=== PATIENT | male | born 1950 | race Caucasian/White ===

== ENCOUNTER 2017-11-11 17:48 | Emergency (ER) | payer MEDICARE, BC ==
[2017-11-11] MEDS ORDERED: Sodium Chloride 0.9% 2.5 ML Syringe FLUSH PRN (18:35)
[2017-11-11] MEDS ORDERED: Sodium Chloride 0.9% 10 ML Syringe FLUSH PRN (18:35)
--- NOTE | 2017-11-11 18:35 | EDM.PDOC ---
<Adam Lorenzo - Last Filed: 11/11/17 22:04> ED HPI GENERAL MEDICAL PROBLEM - General Chief Complaint: Genitourinary Problem Stated Complaint: BOWEL ISSUES Time Seen by Provider: 11/11/17 18:34 Source of Information: Reports: Patient, Family History Limitations: Reports: No Limitations - History of Present Illness INITIAL COMMENTS - FREE TEXT/NARRATIVE: HISTORY AND PHYSICAL: History of present illness: Patient is a 67-year-old male here with complaint of constipation. He states he has not been able to have a bowel movement in at least 2 days. He states that today he took ex-lax and used a suppository and is now having watery diarrhea. He also notes that he has not been able to urinate since this morning. He states he feels like he has to go but is unable to. He states he has some pain around his rectum but denies any abdominal pain. He denies any dysuria, hematuria, melena, hematochezia, nausea, vomiting, abdominal pain, recent travel , recent antibiotic use, chest pain, SOB. He has a history of benign prostatic hyperplasia and constipation secondary to Parkinsons disease. Review of systems: As per history of present illness and below otherwise all systems reviewed and negative. Past medical history: As per history of present illness and as reviewed below otherwise noncontributory. Surgical history: As per history of present illness and as reviewed below otherwise noncontributory. Social history: No reported history of drug or alcohol abuse. Family history: As per history of present illness and as reviewed below otherwise noncontributory. Physical exam: General: Patient sitting comfortably in no acute distress and nontoxic appearing HEENT: Atraumatic, normocephalic, pupils reactive, negative for conjunctival pallor or scleral icterus, mucous membranes moist, throat clear, neck supple, nontender, trachea midline. No meningeal signs. Lungs: Clear to auscultation, breath sounds equal bilaterally, chest nontender. Heart: S1S2, regular, negative for clicks, rubs, or overt murmur. Abdomen: Bowel sounds hyperactive. Soft, nondistended, nontender. Negative for masses or hepatosplenomegaly. Negative for costovertebral tenderness. Pelvis: Stable nontender. Genitourinary: Deferred. Rectal: Large amount of hard stool felt in the rectal vault. Extremities: Atraumatic, negative for cords or calf pain. Neurovascular unremarkable. Neuro: Awake, alert, oriented. Cranial nerves II through XII unremarkable. Cerebellum unremarkable. Motor and sensory unremarkable throughout. Exam nonfocal. Notes: Elevated WBC count likely due to stress reaction. Patient afebrile, CT and CXR negative, UA unremarkable. Diagnostics: CBC, CMP, lipase, bladder scan, UA, UC, CT abdomen/pelvis, CXR Therapeutics: 500mL NS IV A-bomb enema Prescriptions: None Impression: Stool impaction Urinary retention Constipation Plan: 1. Drink plenty of fluids and use miralax as instructed 2. Follow up with primary care provider 3. Return to ED as needed as discussed Definitive disposition and diagnosis as appropriate pending reevaluation and review of above. Generalized Pain Score (Numeric/FACES): 2 - Related Data Allergies Allergy/AdvReac Type Severity Reaction Status Date / Time Dye from leather certain Allergy Rash Uncoded 11/11/17 18:03 clothes Perfumes Allergy Rash Uncoded 11/11/17 18:03 Home Meds: Home Meds Carbidopa/Levodopa [Carbidopa-Levodopa 25-100 Tab] 2 tab PO QID 11/11/17 [ History] Entacapone 200 mg PO ASDIRECTED 11/11/17 [History] Finasteride 5 mg PO DAILY 11/11/17 [History] Tamsulosin [Flomax] 0.4 mg PO DAILY 11/11/17 [History] Past Medical History HEENT History: Reports: Impaired Vision Other HEENT History: wears glasses Cardiovascular History: Reports: None Respiratory History: Reports: None Other Respiratory History: collapsed lung? Gastrointestinal History: Reports: Chronic Constipation Genitourinary History: Reports: Renal Calculus Other Genitourinary History: "History of stones, currently watching Prostate numbers" Other Musculoskeletal History: Hx: Fractured Right Thumb, Some back pain and joint stiffness ('age') Neurological History: Reports: Parkinson's Other Neuro History: "Tremors to Right, starting on Left, medication from Dr. Jenaro Rich, says to treat 'could go into parkinson's" Psychiatric History: Reports: Anxiety Other Psychiatric History: History of alcohol abuse, sober for 'many' years, some anxiety with new things/situations Endocrine/Metabolic History: Reports: None Dermatologic History: Reports: None Other Dermatologic History: Only when I break out from 'dyes, especially from leather and certain clothing" - Infectious Disease History Infectious Disease History: Reports: Chicken Pox, Measles, Shingles - Past Surgical History HEENT Surgical History: Reports: Adenoidectomy, Tonsillectomy Male Surgical History: Reports: Kidney Stone Extraction Neurological Surgical History: Reports: None Musculoskeletal Surgical History: Reports: Other (See Below), Shoulder Surgery Social & Family History - Tobacco Use Smoking Status *Q: Current Every Day Smoker Years of Tobacco use: 20 Packs/Tins Daily: 1 - Caffeine Use Caffeine Use: Reports: None - Recreational Drug Use Recreational Drug Use: No ED ROS GENERAL - Review of Systems Review Of Systems: ROS reveals no pertinent complaints other than HPI. ED EXAM, GI/ABD - Physical Exam Exam: See Below (see dictation) Course - Vital Signs Last Recorded V/S: Last Vital Signs Temp 97.5 F 11/11/17 20:40 Pulse 86 11/11/17 20:40 Resp 16 11/11/17 20:40 BP 138/67 11/11/17 20:40 Pulse Ox 96 11/11/17 20:40 - Orders/Labs/Meds Orders: Active Orders 24 hr Category Date Time Status Abdomen Pelvis w Cont [CT] Stat Exams 11/11/17 18:51 Taken Chest 1V Frontal [CR] Stat Exams 11/11/17 21:03 Taken CULTURE URINE [RM] Stat Lab 11/11/17 18:56 Received Sodium Chloride 0.9% [Normal Saline] 500 ml Med 11/11/17 18:45 Active IV STAT Sodium Chloride 0.9% [Saline Flush] Med 11/11/17 18:35 Active 10 ml FLUSH ASDIRECTED PRN Sodium Chloride 0.9% [Saline Flush] Med 11/11/17 18:35 Active 2.5 ml FLUSH ASDIRECTED PRN Saline Lock Insert [OM.PC] Stat Oth 11/11/17 18:35 Ordered Medication Orders Sodium Chloride (Normal Saline) 500 mls @ 999 mls/hr IV STAT MAURO Last Admin: 11/11/17 20:01 Dose: 999 mls/hr Sodium Chloride (Saline Flush) 10 ml FLUSH ASDIRECTED PRN PRN Reason: Keep Vein Open Sodium Chloride (Saline Flush) 2.5 ml FLUSH ASDIRECTED PRN PRN Reason: Keep Vein Open Labs: Laboratory Tests 11/11/17 11/11/17 11/11/17 Range/Units 18:48 18:48 18:56 WBC 17.03 H (4.0-11.0) K/uL RBC 4.98 (4.50-5.90) M/uL Hgb 15.6 (13.0-17.0) g/dL Hct 44.7 (38.0-50.0) % MCV 89.8 (80.0-98.0) fL MCH 31.3 (27.0-32.0) pg MCHC 34.9 (31.0-37.0) g/dL RDW Std Deviation 46.1 (28.0-62.0) fl RDW Coeff of Pau 14 (11.0-15.0) % Plt Count 227 (150-400) K/uL MPV 10.50 (7.40-12.00) fL Neut % (Auto) 85.8 H (48.0-80.0) % Lymph % (Auto) 8.9 L (16.0-40.0) % [place] % (Auto) 5.2 (0.0-15.0) % Eos % (Auto) 0.0 (0.0-7.0) % Baso % (Auto) 0.1 (0.0-1.5) % Neut # (Auto) 14.6 H (1.4-5.7) K/uL Lymph # (Auto) 1.5 (0.6-2.4) K/uL [place] # (Auto) 0.9 H (0.0-0.8) K/uL Eos # (Auto) 0.0 (0.0-0.7) K/uL Baso # (Auto) 0.0 (0.0-0.1) K/uL Nucleated RBC % 0.0 /100WBC Nucleated RBCs # 0 K/uL Sodium 139 (136-148) mmol/L Potassium 3.7 (3.5-5.1) mmol/L Chloride 104 (98-107) mmol/L Carbon Dioxide 24.2 (21.0-32.0) mmol/L BUN 13 (7.0-18.0) mg/dL Creatinine 1.0 (0.8-1.3) mg/dL Est Cr Clr Drug Dosing 65.57 mL/min Estimated GFR (MDRD) > 60.0 ml/min Glucose 115 H (74-106) mg/dL Calcium 9.2 (8.5-10.1) mg/dL Total Bilirubin 0.5 (0.2-1.0) mg/dL AST 21 (15-37) IU/L ALT 32 (14-63) IU/L Alkaline Phosphatase 92 (46-116) U/L Total Protein 7.2 (6.4-8.2) g/dL Albumin 4.1 (3.4-5.0) g/dL Globulin 3.1 (2.0-3.5) g/dL Albumin/Globulin Ratio 1.3 (1.3-2.8) Lipase 85 (73-393) U/L Urine Color YELLOW Urine Appearance CLEAR Urine pH 5.5 (5.0-8.0) Ur Specific [place] >= 1.030 (1.001-1.035) Urine Protein NEGATIVE (NEGATIVE) mg/dL Urine Glucose (UA) NEGATIVE (NEGATIVE) mg/dL Urine Ketones NEGATIVE (NEGATIVE) mg/dL Urine Occult Blood NEGATIVE (NEGATIVE) Urine Nitrite NEGATIVE (NEGATIVE) Urine Bilirubin NEGATIVE (NEGATIVE) Urine Urobilinogen 0.2 (<2.0) EU/dL Ur Leukocyte Esterase NEGATIVE (NEGATIVE) Urine RBC 0-1 (0-2/HPF) Urine WBC 0-1 (0-5/HPF) Ur Epithelial Cells RARE (NONE-FEW) Urine Bacteria RARE (NEGATIVE) Meds: Medications Generic Name Dose Route Start Last Admin Trade Name Freq PRN Reason Stop Dose Admin Sodium Chloride 500 mls @ 999 mls/hr 11/11/17 18:45 11/11/17 20:01 Normal Saline IV 999 mls/hr STAT MAURO Administration Sodium Chloride 10 ml 11/11/17 18:35 Saline Flush FLUSH ASDIRECTED PRN Keep Vein Open Sodium Chloride 2.5 ml 11/11/17 18:35 Saline Flush FLUSH ASDIRECTED PRN Keep Vein Open Discontinued Medications Generic Name Dose Route Start Last Admin Trade Name Freq PRN Reason Stop Dose Admin Bisacodyl 10 mg 11/11/17 20:49 11/11/17 22:12 Dulcolax RECTAL 11/11/17 20:50 Not Given ONETIME ONE Iopamidol 100 ml 11/11/17 21:24 11/11/17 21:25 Isovue-370 (76%) IVPUSH 11/11/17 21:25 100 ml ONETIME ONE Administration Departure - Departure Time of Disposition: 22:04 Disposition: Home, Self-Care 01 Clinical Impression: Impaction of the bowels, Urinary retention Constipation Qualifiers: Constipation type: unspecified constipation type Qualified Code(s): K59.00 - Constipation, unspecified - Discharge Information Referrals: PCP,None [Primary Care Provider] - Forms: ED Department Discharge Additional Instructions: The following information is given to patients seen in the emergency department who are being discharged to home. This information is to outline your options for follow-up care. We provide all patients seen in our emergency department with a follow-up referral. The need for follow-up, as well as the timing and circumstances, are variable depending upon the specifics of your emergency department visit. If you don't have a primary care physician on staff, we will provide you with a referral. We always advise you to contact your personal physician following an emergency department visit to inform them of the circumstance of the visit and for follow-up with them and/or the need for any referrals to a consulting specialist. The emergency department will also refer you to a specialist when appropriate. This referral assures that you have the opportunity for follow-up care with a specialist. All of these measure are taken in an effort to provide you with optimal care, which includes your follow-up. Under all circumstances we always encourage you to contact your private physician who remains a resource for coordinating your care. When calling for follow-up care, please make the office aware that this follow-up is from your recent emergency room visit. If for any reason you are refused follow-up, please contact the [facility] Emergency Department at and asked to speak to the emergency department charge nurse. [address] [address] 1. Drink plenty of fluids and use miralax as instructed 2. Follow up with primary care provider 3. Return to ED as needed as discussed <Navin Goldberg - Last Filed: 11/11/17 22:36> ED HPI GENERAL MEDICAL PROBLEM - General Source of Information: Reports: Patient, Family History Limitations: Reports: No Limitations - History of Present Illness INITIAL COMMENTS - FREE TEXT/NARRATIVE: Dr. Goldberg taking over patient care at 2200 hrs. I have been thoroughly briefed on this patient and have reviewed pertinent labs and x-ray findings. I have personally examined the patient and agree with the above. After enema patient had good bowel movement. He was discharged with instructions to use fluids as well as MiraLAX. He should follow-up with his primary care provider as mentioned above. ED ROS GENERAL - Review of Systems Review Of Systems: ROS reveals no pertinent complaints other than HPI. ED EXAM, GI/ABD - Physical Exam Exam: See Below Departure - Departure Time of Disposition: 22:36
[2017-11-11] MEDS ORDERED: Sodium Chloride 0.9% 500 ML IV SCH (18:45)
[2017-11-11 19:17] LABS: CHLORIDE,CL 104 mmol/L (98-107); SODIUM,NA 139 mmol/L (136-148)
[2017-11-11] MEDS ORDERED: Bisacodyl 10 MG Supp RECTAL ONE (20:49)
[2017-11-11] MEDS ORDERED: Iopamidol 755 Mg/ML 100 ML Bottle IVPUSH ONE (21:24)
[2017-11-11 23:19] VITALS: BP 142/68
--- NOTE | 2017-11-14 10:36 | CT ---
EXAM DATE: 11/11/17 PATIENT'S AGE: 67 Patient: VICENTE HOLGUIN Facility: [place], [place] Site . Site : 1950 Study: CT Abdomen -11/11/2017 8:17:43 PM Ordering Physician: Doctor Knight Final Report: Indication: Abdominal pain with urination. Diarrhea. Technique: Multiple contiguous axial images were obtained from the lung bases through the symphysis pubis after the intravenous administration 100 milliliters Isovue 370. Please note that all CT scans at this facility use dose modulation, iterative reconstruction, and/or weight-based dosing when appropriate to reduce radiation dose to as low as reasonably achievable. Comparison: February 17, 2017. Findings: The lung bases are clear. No infiltrate, pleural effusion, or pneumothorax is identified. The heart is normal in size. No pericardial effusion is identified. The left hemidiaphragm is elevated. Three hepatic cysts are identified in the right lobe of the liver. No intrahepatic biliary ductal dilatation is identified. No intrahepatic masses are seen. The gallbladder, spleen, pancreas, adrenals, and kidneys are normal. A splenic cyst is identified. Bilateral renal cysts are identified. No hydronephrosis is identified. No renal calculi are seen on the left. Nonobstructive right renal calculus is identified. In the pelvis, the prostate gland has calcifications. The urinary bladder is decompressed. The small and large bowel are normal in caliber. Moderate amount of stool is identified within the colon. The appendix is normal in caliber. No periappendiceal fat stranding or fluid collections are identified. The aorta is normal in caliber. Vascular calcifications are identified. No free air or free fluid is identified within the abdomen or pelvis. Degenerative changes of the spine are seen. No lytic or blastic lesions are identified. Impression: Hepatic, renal, and splenic cysts. No hydronephrosis. Nonobstructive right renal calculus. Please note that all CT scans at this facility use dose modulation, iterative reconstruction, and/or weight-based dosing when appropriate to reduce radiation dose to as low as reasonably achievable. Dictated by Sharon Waddell MD @ Nov 11 2017 8:20PM (Electronic Signature) Report Signed by Proxy. [facility]
--- NOTE | 2017-11-14 11:30 | CR ---
EXAM DATE: 11/11/17 PATIENT'S AGE: 67 Patient: VICENTE HOLGUIN Facility: [place], [place] Site . Site : 1950 Study: XRay Chest -11/11/2017 9:26:17 PM Ordering Physician: Doctor Knight Final Report: INDICATION: Shortness of breath TECHNIQUE: Chest radiograph one-view COMPARISON: None FINDINGS: Mediastinum: The mediastinum is normal in appearance. The heart silhouette is normal in size and morphology. Lung: Mild elevation of the left hemidiaphragm is present with compressive left perihilar atelectasis noted. The right lung is clear but has small lung volumes. No sign of pleural effusion seen. No pneumothorax is identified. Musculoskeletal: Cephalad migration of the bilateral humeral heads noted, likely due to rotator cuff atrophy and/or tear. IMPRESSION: 1. Mild elevation of the left hemidiaphragm is present with compressive left perihilar atelectasis noted. Dictated by Zane Welsh MD @ 11/11/2017 9:28:21 PM Dictated by: Zane Welsh MD @ 11/11/2017 21:28:24 (Electronic Signature) Report Signed by Proxy. JASEN
== END 2017-11-11 23:13 | disposition home or self-care (01) ==
LOC: MW.ED 17:48
DX: K59.00 Constipation, unspecified (principal); R33.9 Retention of urine, unspecified; F17.210 Nicotine dependence, cigarettes, uncomplicated; Z79.899 Other long term (current) drug therapy; Z91.041 Radiographic dye allergy status; Z91.09 Other allergy status, other than to drugs and biological substances
CPT/HCPCS: 36415; 71045; 74177; 80053; 81001; 83690; 85025; 87086; 96360; 96361; 99284; J7040; Q9967

== ENCOUNTER 2021-12-10 07:09 | Day surgery (SDC) | payer MEDICARE, BC ==
[~2021-12-10 07:09] MED LIST: Lactated Ringers 1,000 ML IV SCH; Sodium Chloride 0.9% 10 ML Syringe FLUSH PRN; Sodium Chloride 0.9% 2.5 ML Syringe FLUSH PRN; Sodium Chloride 0.9% 20 ML SDV IV PRN
[2021-12-10] MEDS ORDERED: fentaNYL 100 MCG/2 ML SDV ONE (07:30)
[2021-12-10] MEDS ORDERED: Propofol 200 MG/20 ML SDV ONE (07:30)
[2021-12-10] MEDS ORDERED: Lidocaine 2% 5 ML SDV ONE (07:30)
[2021-12-10 10:17] VITALS: BP 110/55; PULSE 55
== END 2021-12-10 10:35 | disposition home or self-care (01) ==
LOC: MW.SDS 07:09
PROVIDERS: ATTEND Surgery
DX: D12.0 Benign neoplasm of cecum (principal); K62.1 Rectal polyp; K62.7 Radiation proctitis; F32.A Depression, unspecified; G20 Parkinson's disease; F41.9 Anxiety disorder, unspecified; Z98.890 Other specified postprocedural states; Z91.048 Other nonmedicinal substance allergy status; Z85.46 Personal history of malignant neoplasm of prostate; Z79.899 Other long term (current) drug therapy; Z87.891 Personal history of nicotine dependence
CPT/HCPCS: 45380; J2704; J3010; J7120; 00811; 88305; 99100

== ENCOUNTER 2022-12-01 18:14 | Emergency (ER) | payer MEDICARE, BC ==
[2022-12-01] MEDS ORDERED: QUEtiapine 100 MG Tab PO STA (19:30)
[2022-12-01 19:48] LABS: APPEARANCE,URINE CLEAR; BILIRUBIN,URINE NEGATIVE (NEGATIVE); COLOR,URINE YELLOW; GLUCOSE,URINE NEGATIVE (NEGATIVE); KETONES,URINE TRACE mg/dL (NEGATIVE); LEUKOCYTE ESTERASE,URINE NEGATIVE (NEGATIVE); NITRITE,URINE NEGATIVE (NEGATIVE); OCCULT BLOOD,URINE NEGATIVE (NEGATIVE); PROTEIN,URINE NEGATIVE (NEGATIVE); UROBILINOGEN,URINE 0.2 EU/dL (<2.0)
[2022-12-01 19:55] LABS: BASOPHILS ABSOLUTE AUTO 0.05 K/uL (0.00-0.20); BASOPHILS PERCENT AUTO 0.9 % (0.0-1.0); EOSINOPHILS PERCENT AUTO 3.4 % (0.0-6.0); HEMATOCRIT 44.5 % (42.0-52.0); HEMOGLOBIN 14.9 g/dL (14.0-18.0); IMMATURE GRAN ABSOLUTE AUTO 0.01 K/uL (0.00-0.05); IMMATURE GRAN PERCENT AUTO 0.2 % (0.0-0.4); LYMPHOCYTES ABSOLUTE AUTO 1.21 K/uL (1.00-4.80); LYMPHOCYTES PERCENT AUTO 20.8 % (24.0-44.0); MEAN CORPUSCULAR HEMOGLOBIN 30.5 pg (28.0-32.0); MEAN CORPUSCULAR HGB CONC 33.5 g/dL (32.0-36.0); MEAN PLATELET VOLUME 10.3 fL (9.4-12.4); MONOCYTES PERCENT AUTO 8.6 % (0.0-8.0); NEUTROPHILS ABSOLUTE AUTO 3.84 K/uL (1.80-7.70); NEUTROPHILS PERCENT AUTO 66.1 % (41.0-71.0); PLATELET COUNT,PLT 202 K/uL (150-400); RED BLOOD CELL COUNT 4.89 M/uL (4.52-5.90); WHITE BLOOD CELL COUNT,WBC 5.81 K/uL (3.9-11.3)
[2022-12-01 19:58] LABS: AMPHETAMINES SCREEN, URINE NEGATIVE (CUTOFF=500); BARBITURATE SCREEN,URINE NEGATIVE (CUTOFF=200); BENZODIAZEPINES SCREEN,URINE NEGATIVE (CUTOFF=150); BUPRENORPHINE SCREEN,URINE NEGATIVE (CUTOFF=10); METHADONE SCREEN, URINE NEGATIVE (CUTOFF=200); METHAMPHETAMINES SCREEN, URINE NEGATIVE (CUTOFF=500); OXYCODONE SCREEN,URINE NEGATIVE (CUT0FF=100); PCP SCREEN,URINE NEGATIVE (CUTOFF=25); PROPOXYPHENE SCREEN,URINE NEGATIVE (CUTOFF=300); THC SCREEN,URINE 20 NG/ML NEGATIVE (CUTOFF=50)
[2022-12-01 20:30] LABS: BLOOD UREA NITROGEN,BUN 17 mg/dL (7.0-18.0); CHLORIDE,CL 104 mmol/L (98-107); EST CRCL DRUG DOSING (CG) 50.95 mL/min; ETHANOL BLOOD MEDICAL <3 mg/dL; LIPASE 34 U/L (16-77); POTASSIUM,K 4.2 mmol/L (3.5-5.1); SALICYLATE 0.7 mg/dL (0.0-20.0)
[2022-12-01 21:28] LABS: A/G RATIO 1.1 (0.9-1.6); ACETAMINOPHEN <2.0 ug/mL; ALANINE AMINOTRANSFERASE,ALT 12 IU/L (14-63); ALBUMIN 4.2 g/dL (3.4-5.0); ALKALINE PHOSPHATASE 84 U/L (46-116); ASPARTATE AMNIOTRANSFERASE,AST 26 IU/L (15-37); BILIRUBIN TOTAL 0.5 mg/dL (0.2-1.0); CALCIUM 9.3 mg/dL (8.5-10.1); CARBON DIOXIDE,CO2 27.7 mmol/L (21.0-32.0); CREATININE 1.2 mg/dL (0.8-1.3); GLUCOSE RANDOM 94 mg/dL (74-106); MAGNESIUM 2.5 mg/dL (1.8-2.4); PROTEIN TOTAL,TP 7.9 g/dL (6.4-8.2); SODIUM,NA 139 mmol/L (136-148); TSH ULTRASENSITIVE 2.42 uIU/mL (0.36-3.74)
[2022-12-01 21:29] LABS: ESTIMATED GFR 65 mL/min (>60)
[2022-12-01 22:07] VITALS: BP 124/63; PULSE 69
== END 2022-12-01 21:45 | disposition home or self-care (01) ==
LOC: MW.ED 18:14
DX: F03.918 Unspecified dementia, unspecified severity, with other behavioral disturbance (principal); Z91.048 Other nonmedicinal substance allergy status
CPT/HCPCS: 36415; 70450; 71045; 80053; 80143; 80179; 80305; 80307; 81003; 83690; 83735; 84443; 84484; 85025; 99285; A9270; 93005; 93010; 99282

== ENCOUNTER 2023-05-09 07:08 | Emergency (ER) | payer MEDICARE, BC ==
[2023-05-09 07:20] LABS: BASOPHILS ABSOLUTE AUTO 0.06 K/uL (0.00-0.20); BASOPHILS PERCENT AUTO 0.7 % (0.0-1.0); EOSINOPHILS ABSOLUTE AUTO 0.48 K/uL (0.00-0.45); EOSINOPHILS PERCENT AUTO 5.5 % (0.0-6.0); HEMATOCRIT 39.4 % (42.0-52.0); HEMOGLOBIN 12.9 g/dL (14.0-18.0); IMMATURE GRAN ABSOLUTE AUTO 0.02 K/uL (0.00-0.05); IMMATURE GRAN PERCENT AUTO 0.2 % (0.0-0.4); LYMPHOCYTES ABSOLUTE AUTO 1.57 K/uL (1.00-4.80); MEAN CORPUSCULAR HEMOGLOBIN 29.4 pg (28.0-32.0); MEAN CORPUSCULAR HGB CONC 32.7 g/dL (32.0-36.0); MEAN CORPUSCULAR VOLUME 89.7 fL (83.0-99.0); MEAN PLATELET VOLUME 10.5 fL (9.4-12.4); MONOCYTES PERCENT AUTO 9.2 % (0.0-8.0); NEUTROPHILS ABSOLUTE AUTO 5.79 K/uL (1.80-7.70); NEUTROPHILS PERCENT AUTO 66.4 % (41.0-71.0); PLATELET COUNT,PLT 191 K/uL (150-400); RED BLOOD CELL COUNT 4.39 M/uL (4.52-5.90); WHITE BLOOD CELL COUNT,WBC 8.72 K/uL (3.9-11.3)
[2023-05-09 07:47] LABS: ALBUMIN 3.5 g/dL (3.4-5.0); BILIRUBIN TOTAL 0.5 mg/dL (0.2-1.0); CARBON DIOXIDE,CO2 29.5 mmol/L (21.0-32.0); CREATININE 1.3 mg/dL (0.8-1.3); EST CRCL DRUG DOSING (CG) 47.03 mL/min; MAGNESIUM 2.2 mg/dL (1.8-2.4); PROTEIN TOTAL,TP 7.1 g/dL (6.4-8.2)
[2023-05-09 09:33] VITALS: BP 157/83; PULSE 64
== END 2023-05-09 09:32 | disposition home or self-care (01) ==
LOC: MW.ED 07:08
DX: R07.89 Other chest pain (principal); G20.A1 Parkinson's disease without dyskinesia, without mention of fluctuations; Z86.19 Personal history of other infectious and parasitic diseases
CPT/HCPCS: 36415; 71046; 71046-26; 80053; 83735; 84484; 85025; 93010; 99282; 99285

== ENCOUNTER 2024-12-19 23:10 | Emergency (ER) | payer MEDICARE, BC ==
[2024-12-19 23:29] LABS: BASOPHILS ABSOLUTE AUTO 0.07 K/uL (0.00-0.20); BASOPHILS PERCENT AUTO 0.9 % (0.0-1.0); EOSINOPHILS ABSOLUTE AUTO 0.35 K/uL (0.00-0.45); EOSINOPHILS PERCENT AUTO 4.7 % (0.0-6.0); IMMATURE GRAN ABSOLUTE AUTO 0.01 K/uL (0.00-0.05); IMMATURE GRAN PERCENT AUTO 0.1 % (0.0-0.4); LYMPHOCYTES ABSOLUTE AUTO 1.08 K/uL (1.00-4.80); LYMPHOCYTES PERCENT AUTO 14.4 % (24.0-44.0); MEAN PLATELET VOLUME 10.4 fL (9.4-12.4); MONOCYTES ABSOLUTE AUTO 0.58 K/uL (0.00-0.80); MONOCYTES PERCENT AUTO 7.7 % (0.0-8.0); NEUTROPHILS ABSOLUTE AUTO 5.41 K/uL (1.80-7.70); NEUTROPHILS PERCENT AUTO 72.2 % (41.0-71.0); NRBC ABSOLUTE 0.00 K/uL (0.00-0.02); NRBC PERCENT 0.0 /100WBC (0.0-0.2); PLATELET COUNT,PLT 160 K/uL (150-400); RED BLOOD CELL COUNT 4.52 M/uL (4.52-5.90); WHITE BLOOD CELL COUNT,WBC 7.50 K/uL (3.9-11.3)
[2024-12-20 00:02] LABS: A/G RATIO 1.1 (0.9-1.6); ALANINE AMINOTRANSFERASE,ALT 12 IU/L (14-63); ASPARTATE AMNIOTRANSFERASE,AST 20 IU/L (15-37); BILIRUBIN TOTAL 0.4 mg/dL (0.2-1.0); BLOOD UREA NITROGEN,BUN 19 mg/dL (7.0-18.0); CARBON DIOXIDE,CO2 31.2 mmol/L (21.0-32.0); CHLORIDE,CL 105 mmol/L (98-107); CREATININE 1.4 mg/dL (0.8-1.3); GLUCOSE RANDOM 106 mg/dL (74-106); POTASSIUM,K 4.1 mmol/L (3.5-5.1); PRO B-TYPE NATRIUR PEPT,BNPPRO 251 pg/mL (0-125); PROTEIN TOTAL,TP 7.0 g/dL (6.4-8.2); SODIUM,NA 141 mmol/L (136-148)
[2024-12-20 00:03] LABS: ESTIMATED GFR 53 mL/min (>60)
[2024-12-20 00:39] LABS: APPEARANCE,URINE CLEAR; GLUCOSE,URINE NEGATIVE (NEGATIVE); OCCULT BLOOD,URINE NEGATIVE (NEGATIVE)
[2024-12-20] MEDS: Iopamidol 755 MG/ML 500 ML Multipack Bottle IVPUSH STA (01:45)
[2024-12-20 02:37] VITALS: BP 164/74; PULSE 76
== END 2024-12-20 02:56 | disposition home or self-care (01) ==
LOC: MW.ED 23:10
DX: N13.2 Hydronephrosis with renal and ureteral calculous obstruction (principal); Z91.041 Radiographic dye allergy status; Z79.899 Other long term (current) drug therapy; Z79.890 Hormone replacement therapy
CPT/HCPCS: 36415; 71045; 74177; 76705; 80053; 81003; 82947; 83605; 83690; 83735; 83880; 84484; 85025; 93005; 96360; 99285; A9270; J7030; Q9967; 93010; 99284